=== PATIENT | male | born 1985 | race Caucasian/White ===

== ENCOUNTER 2019-02-05 23:31 | Emergency (ER) | payer BC ==
[2019-02-05] MEDS ORDERED: cefTRIAXone 1 GM Vial IM ONE (23:44)
[2019-02-05] MEDS ORDERED: guaiFENesin/Dextromethorphan 100-10 MG/5 ML Soln 5 ML Cup PO ONE (23:44)
[2019-02-05] MEDS ORDERED: Albuterol/Ipratropium 3.0-0.5 MG/3 ML Neb Soln NEB ONE (23:44)
--- NOTE | 2019-02-05 23:46 | EDM.PDOC ---
ED HPI GENERAL MEDICAL PROBLEM - General Chief Complaint: General Stated Complaint: cough Time Seen by Provider: 02/05/19 23:39 Source of Information: Reports: Patient History Limitations: Reports: No Limitations - History of Present Illness INITIAL COMMENTS - FREE TEXT/NARRATIVE: Patient is a 34-year-old gentleman who presents to the emergency department this evening with a complaint of upper respiratory symptoms including cough with productive yellow sputum. Patient's girlfriend presented last evening with similar symptoms and both were being treated at [facility] recently for bronchitis. Patient underwent regimen of Zithromax and prednisone with little to no relief over the past week. Girlfriend was found to have negative influenza yesterday. Patient denies fever, chest pain, shortness of breath or out of country travel. Onset: Gradual Duration: Day(s): Severity: Mild Improves with: Reports: None Worsens with: Reports: None Associated Symptoms: Reports: Cough, cough w sputum. Denies: Chest Pain, Fever/ Chills, Nausea/Vomiting, Shortness of Breath - Related Data Allergies Allergy/AdvReac Type Severity Reaction Status Date / Time sulfamethoxazole Allergy Cannot Verified 02/05/19 23:40 [From Bactrim] Remember trimethoprim [From Bactrim] Allergy Cannot Verified 02/05/19 23:40 Remember Home Meds: Home Meds Ranitidine HCl [Ranitidine] 300 mg PO DAILY 04/06/18 [History] hydrOXYzine pamoate [Hydroxyzine Pamoate] 50 mg PO TID PRN 04/06/18 [History] Past Medical History Musculoskeletal History: Reports: Other (See Below) Other Musculoskeletal History: Sciatic nerve pain at times on R side. Social & Family History - Caffeine Use Caffeine Use: Reports: Soda ED ROS GENERAL - Review of Systems Review Of Systems: ROS reveals no pertinent complaints other than HPI. Constitutional: Reports: No Symptoms HEENT: Reports: No Symptoms Respiratory: Reports: Cough, Sputum Cardiovascular: Reports: No Symptoms Endocrine: Reports: No Symptoms GI/Abdominal: Reports: No Symptoms : Reports: No Symptoms Musculoskeletal: Reports: No Symptoms Skin: Reports: No Symptoms Neurological: Reports: No Symptoms Psychiatric: Reports: No Symptoms Hematologic/Lymphatic: Reports: No Symptoms Immunologic: Reports: No Symptoms ED EXAM, GENERAL - Physical Exam Exam: See Below Exam Limited By: No Limitations General Appearance: Alert, WD/WN, No Apparent Distress Nose: Normal Inspection, Normal Mucosa, No Blood Throat/Mouth: Normal Inspection, Normal Oropharynx, No Airway Compromise Head: Atraumatic, Normocephalic Neck: Normal Inspection Respiratory/Chest: No Respiratory Distress, No Accessory Muscle Use, Chest Non- Tender, Rhonchi (Apical clears with cough) Cardiovascular: Regular Rate, Rhythm, No Murmur Extremities: Normal Inspection, No Pedal Edema Neurological: Alert, Oriented, Normal Cognition Psychiatric: Normal Affect, Normal Mood Skin Exam: Warm, Dry, Intact, Normal Color, No Rash Lymphatic: No Adenopathy Course - Re-Assessments/Exams Free Text/Narrative Re-Assessment/Exam: 02/05/19 23:53 Patient afebrile, vital signs stable, given 1 g Rocephin IM. Will follow-up with PCP in 2-3 days Departure - Departure Time of Disposition: 23:54 Disposition: Home, Self-Care 01 Condition: Good Clinical Impression: Upper respiratory infection Qualifiers: URI type: unspecified URI Qualified Code(s): J06.9 - Acute upper respiratory infection, unspecified - Discharge Information Instructions: Upper Respiratory Infection, Adult, [id number], Cough, Adult, [id number] Referrals: Eugenia Patel PA-C [Physician] - Additional Instructions: Follow up with Eugenia next 2-3 days. Return to emergency department sooner if symptoms continue to worsen. - Assessment/Plan Assessment:: Upper respiratory infection Plan: Follow-up with PCP
[2019-02-05] MEDS ORDERED: Lidocaine 1% 20 ML MDV ONE (23:52)
== END 2019-02-06 00:14 | disposition home or self-care (01) ==
LOC: KA.ED 23:31
DX: J06.9 Acute upper respiratory infection, unspecified (principal); Z88.1 Allergy status to other antibiotic agents; Z88.2 Allergy status to sulfonamides; Z79.899 Other long term (current) drug therapy
CPT/HCPCS: 94640; 96372; 99283; J0696; J2001; J7620-GY

== ENCOUNTER 2019-06-03 03:22 | Emergency (ER) | payer BC ==
--- NOTE | 2019-06-03 04:21 | EDM.PDOC ---
ED HPI GENERAL MEDICAL PROBLEM - General Chief Complaint: ENT Problem Stated Complaint: something caught in throat Time Seen by Provider: 06/03/19 03:45 Source of Information: Reports: Patient History Limitations: Reports: No Limitations - History of Present Illness INITIAL COMMENTS - FREE TEXT/NARRATIVE: 34-year-old male presents with a complaint of a foreign body (jerky) stuck in his throat. Patient was working at [employer] when he was eating some jerky and felt a piece lodge onto the right side of his throat. He did throw up one time due to gagging. He feels it is still present. He does not have any problems swallowing or drinking water. He is not have any airway difficulties or dysphasia. Onset: Today Onset Date: 06/03/19 Onset Time: 02:00 Duration: Minutes:, Constant Location: Reports: Neck Quality: Reports: Ache Severity: Mild Improves with: Reports: None Throat Pain Score (Numeric/FACES): 1 - Related Data Allergies Allergy/AdvReac Type Severity Reaction Status Date / Time sulfamethoxazole Allergy Cannot Verified 06/03/19 03:32 [From Bactrim] Remember trimethoprim [From Bactrim] Allergy Cannot Verified 02/05/19 23:40 Remember Home Meds: Home Meds Ranitidine HCl [Ranitidine] 300 mg PO DAILY 04/06/18 [History] hydrOXYzine pamoate [Hydroxyzine Pamoate] 50 mg PO TID PRN 04/06/18 [History] Past Medical History HEENT History: Reports: Impaired Vision Other HEENT History: glasses Gastrointestinal History: Reports: GERD Musculoskeletal History: Reports: Other (See Below) Other Musculoskeletal History: Sciatic nerve pain at times on R side. Neurological History: Reports: Migraines Psychiatric History: Reports: Anxiety - Infectious Disease History Infectious Disease History: Reports: Chicken Pox Social & Family History - Family History Oncologic: Reports: Breast Other Oncologic Family History: Mother had breast cancer - Tobacco Use Smoking Status *Q: Current Every Day Smoker Years of Tobacco use: 12 Packs/Tins Daily: 0.5 Second Hand Smoke Exposure: No - Caffeine Use Caffeine Use: Reports: Coffee, Energy Drinks, Soda - Recreational Drug Use Recreational Drug Use: No ED ROS ENT - Review of Systems Review Of Systems: Comprehensive ROS is negative, except as noted in HPI. ED EXAM, ENT - Physical Exam Exam: See Below Exam Limited By: No Limitations General Appearance: Alert, WD/WN, No Apparent Distress Eye Exam: Bilateral Eye: EOMI Ears: Hearing Grossly Normal Nose: Normal Inspection Mouth/Throat: Normal Inspection, Normal Gums, Normal Lips, Normal Oropharynx, Normal Teeth, Other (Small piece of the turkey is noted lodged along the posterior pharynx this is a visible use of light and tongue depressor.). No: Muffled Voice, Throat Swelling, Tongue Swelling, Tonsillar Erythema, Tonsillar Swelling, Uvular Deviation, Uvular Edema Head: Atraumatic, Normocephalic Neck: Normal Inspection, Supple, Non-Tender, Full Range of Motion Respiratory/Chest: No Respiratory Distress ED ENT PROCEDURES - Foreign Body Removal Indication:: Removal of foreign body (jerky) Foreign Body Other Location Comment:: Small piece of jerky was visualized in the posterior pharynx right side Anesthesia Type: None Findings: Small piece of foreign body (jerky) was removed using a small alligator forceps and tongue depressor without difficulty. Patient had immediate relief of the symptoms. Complications: No Course - Vital Signs Last Recorded V/S: Last Vital Signs Temp 98.4 F 06/03/19 03:23 Pulse 78 06/03/19 04:12 Resp 18 06/03/19 04:12 BP 137/78 06/03/19 04:12 Pulse Ox 97 06/03/19 04:12 - Re-Assessments/Exams Free Text/Narrative Re-Assessment/Exam: 06/03/19 04:24 She reports symptoms are resolved. He was drink of small bowel water without any difficulty. Departure - Departure Time of Disposition: 04:24 Disposition: Home, Self-Care 01 Condition: Good (Foreign body) Clinical Impression: Foreign body in throat Qualifiers: Encounter type: initial encounter Qualified Code(s): T17.208A - Unspecified foreign body in pharynx causing other injury, initial encounter - Discharge Information Instructions: Swallowed Foreign Body, Adult, [id number] Forms: ED Department Discharge Sepsis Event Note - Evaluation Sepsis Screening Result: No Definite Risk - Focused Exam Vital Signs: Vital Signs Temp Pulse Resp BP Pulse Ox 06/03/19 04:12 78 18 137/78 97 06/03/19 03:45 80 120/58 L 06/03/19 03:23 98.4 F 84 18 132/91 H 98 Date Exam was Performed: 06/03/19 Time Exam was Performed: 04:15 - Assessment/Plan Assessment:: Foreign body in the throat Plan: 1. Small piece of jerky was removed with alligator forceps and direct light visualization and use of a tongue depressor without the difficulty of. Patient reported resolution of his symptoms. He was drinking a small probable water without any difficulty. He is discharged to home with normal activities.
== END 2019-06-03 04:20 | disposition home or self-care (01) ==
LOC: KA.ED 03:22
DX: T17.228A Food in pharynx causing other injury, initial encounter (principal); K21.9 Gastro-esophageal reflux disease without esophagitis; F41.9 Anxiety disorder, unspecified; F17.210 Nicotine dependence, cigarettes, uncomplicated; Z88.2 Allergy status to sulfonamides; Z79.899 Other long term (current) drug therapy
CPT/HCPCS: 42809; 99283-25

== ENCOUNTER 2020-01-21 16:30 | Emergency (ER) | payer BC, OTHER ==
--- NOTE | 2020-01-21 16:52 | EDM.PDOC ---
ED HPI GENERAL MEDICAL PROBLEM - General Chief Complaint: General Stated Complaint: cough, fatigue, chills, weak, shakey Time Seen by Provider: 01/21/20 16:30 Source of Information: Reports: Patient History Limitations: Reports: No Limitations - History of Present Illness INITIAL COMMENTS - FREE TEXT/NARRATIVE: Right elbow, 35-year-old male, presents emergency department today with increasing symptoms/worsening symptoms of COVID-19. He developed initial symptoms on the weekend of the 04 14 and presented for evaluation on the . Negative influenza at that time. On the COVID-19 returned negative. He has been compliant with his medications and has had worsening discomfort, shortness of breath and increased cough over the past 24 hours. His hearing and vision have remained intact. His taste and smell are not normal, but he is able to experience taste. Generalized body aches as well as headache. He has increasing cough with associated shortness of breath. Denies any prolonged cough that does not cease. Has had normal bowel movement with questionably normal stool. generalized aches and pain with fatigue. Spouse is experiencing similar symptoms, although kori as severe. Onset Date: 01/14/20 Duration: Day(s):, Getting Worse Location: Reports: Head, Chest Quality: Reports: Burning, Pressure Severity: Severe Improves with: Reports: None Worsens with: Reports: Breathing Context: Reports: Sick Contact Associated Symptoms: Reports: No Other Symptoms - Related Data Allergies Allergy/AdvReac Type Severity Reaction Status Date / Time sulfamethoxazole Allergy Cannot Verified 01/21/20 16:40 [From Bactrim] Remember trimethoprim [From Bactrim] Allergy Cannot Verified 01/21/20 16:40 Remember Home Meds: Home Meds Ranitidine HCl [Ranitidine] 300 mg PO DAILY 04/06/18 [History] hydrOXYzine pamoate [Hydroxyzine Pamoate] 50 mg PO TID PRN 04/06/18 [History] Past Medical History HEENT History: Reports: Impaired Vision Other HEENT History: glasses Cardiovascular History: Reports: None Gastrointestinal History: Reports: GERD Musculoskeletal History: Reports: Other (See Below) Other Musculoskeletal History: Sciatic nerve pain at times on R side. Neurological History: Reports: Migraines Psychiatric History: Reports: Anxiety - Infectious Disease History Infectious Disease History: Reports: Chicken Pox Social & Family History - Family History Family Medical History: Noncontributory Oncologic: Reports: Breast Other Oncologic Family History: Mother had breast cancer - Tobacco Use Smoking Status *Q: Former Smoker Used Tobacco, but Quit: Yes Month/Year Tobacco Last Used: quit 6 mo. ago - Caffeine Use Caffeine Use: Reports: Soda - Recreational Drug Use Recreational Drug Use: No ED ROS GENERAL - Review of Systems Review Of Systems: Comprehensive ROS is negative, except as noted in HPI. ED EXAM, GENERAL - Physical Exam Exam: See Below Free Text/Narrative:: Alert oriented in mild distress secondary of cough. Able to speak and converse freely with no evidence of cyanosis nor pallor. Any forceful exhalation including speaking tends to produce cough. HEENT is negative discharge or deformity, there is no involvement of the auditory canals or tympanic membranes. Nasal passages are patent somewhat congested/hypertrophied, oropharynx shows no exudate or erythema. Neck is soft supple no lymphadenopathy no JVD no nuchal rigidity. Mild t enderness in the musculature is noted in the examination of the neck shoulders arms. Thorax is mildly diminished in the left and raspy with a clicking expiratory cycle, very faint wheeze on initial exhalation at the base on the left. There is no prolonged wheezing, no stridor. Cardiac is S1 S2 with no appreciated murmur. Abdomen is soft bowel sounds are noted with no specific tenderness/pain to p alpation. No rebound tenderness. No flank pain to percussion no tenderness to the thoracic or lumbar spine. rectal is deferred. There is no edema to the lower extremities he is able to move about with no exertional distress. Course - Vital Signs Last Recorded V/S: Last Vital Signs Temp 36.9 C 01/21/20 18:00 Pulse 108 H 01/21/20 16:36 Resp 22 H 01/21/20 16:36 BP 151/107 H 01/21/20 16:36 Pulse Ox 96 01/21/20 16:36 - Orders/Labs/Meds Orders: Active Orders 24 hr Category Date Time Status Isolation [COMM] Routine Oth 01/21/20 16:40 Ordered Labs: Laboratory Tests 01/21/20 01/21/20 01/21/20 Range/Units 16:55 16:55 16:55 WBC 10.39 H (5.00-10.00) 10^3/uL RBC 5.83 (4.50-6.00) 10^6/uL Hgb 16.7 (13.0-17.0) g/dL Hct 49.2 (40.0-52.0) % MCV 84.4 (82.0-92.0) fL MCH 28.6 (27.0-31.0) pg MCHC 33.9 (32.0-36.0) g/dL RDW 12.6 (11.5-14.5) % Plt Count 269 (150-400) 10^3/uL MPV 11.0 H (7.4-10.4) fL Immature Gran % (Auto) 0.2 (0.0-5.0) % Neut % (Auto) 83.0 H (50.0-70.0) % Lymph % (Auto) 13.9 L (20.0-40.0) % George % (Auto) 2.5 (2.0-8.0) % Eos % (Auto) 0.2 L (1.0-3.0) % Baso % (Auto) 0.2 (0.0-1.0) % Neut # (Auto) 8.63 H (2.50-7.00) 10^3/uL Lymph # (Auto) 1.44 (1.00-4.00) 10^3/uL George # (Auto) 0.26 (0.10-0.80) 10^3/uL Eos # (Auto) 0.02 L (0.10-0.30) 10^3/uL Baso # (Auto) 0.02 (0.00-0.10) 10^3/uL Immature Gran # (Auto) 0.02 (0.00-0.50) 10^3/uL Sodium 137 (136-145) mmol/L Potassium 4.0 (3.3-5.3) mmol/L Chloride 101 (98-115) mmol/L Carbon Dioxide 22.2 (21.0-32.0) mmol/L Anion Gap 17.8 H (5-15) mmol/L BUN 13 (6-25) mg/dL Creatinine 1.18 H (0.51-1.17) mg/dL Est Cr Clr Drug Dosing 94.83 mL/min Estimated GFR (MDRD) > 60 mL/min Glucose 124 H (75 - 99) mg/dL Lactic Acid 1.9 (0.4-2.0) mmol/L Calcium 8.7 (8.7-10.3) mg/dL Total Bilirubin 0.6 (0.2-1.0) mg/dL AST 18 (15-37) U/L ALT 41 (12-78) U/L Alkaline Phosphatase 71 (46-116) IU/L Total Protein 7.9 (6.4-8.2) g/dL Albumin 4.20 (3.00-4.80) g/dL SARS CoV-2 RNA Rapid KORINA (NEGATIVE) 01/21/20 Range/Units 16:55 WBC (5.00-10.00) 10^3/uL RBC (4.50-6.00) 10^6/uL Hgb (13.0-17.0) g/dL Hct (40.0-52.0) % MCV (82.0-92.0) fL MCH (27.0-31.0) pg MCHC (32.0-36.0) g/dL RDW (11.5-14.5) % Plt Count (150-400) 10^3/uL MPV (7.4-10.4) fL Immature Gran % (Auto) (0.0-5.0) % Neut % (Auto) (50.0-70.0) % Lymph % (Auto) (20.0-40.0) % George % (Auto) (2.0-8.0) % Eos % (Auto) (1.0-3.0) % Baso % (Auto) (0.0-1.0) % Neut # (Auto) (2.50-7.00) 10^3/uL Lymph # (Auto) (1.00-4.00) 10^3/uL George # (Auto) (0.10-0.80) 10^3/uL Eos # (Auto) (0.10-0.30) 10^3/uL Baso # (Auto) (0.00-0.10) 10^3/uL Immature Gran # (Auto) (0.00-0.50) 10^3/uL Sodium (136-145) mmol/L Potassium (3.3-5.3) mmol/L Chloride (98-115) mmol/L Carbon Dioxide (21.0-32.0) mmol/L Anion Gap (5-15) mmol/L BUN (6-25) mg/dL Creatinine (0.51-1.17) mg/dL Est Cr Clr Drug Dosing mL/min Estimated GFR (MDRD) mL/min Glucose (75 - 99) mg/dL Lactic Acid (0.4-2.0) mmol/L Calcium (8.7-10.3) mg/dL Total Bilirubin (0.2-1.0) mg/dL AST (15-37) U/L ALT (12-78) U/L Alkaline Phosphatase (46-116) IU/L Total Protein (6.4-8.2) g/dL Albumin (3.00-4.80) g/dL SARS CoV-2 RNA Rapid KORINA Negative (NEGATIVE) Meds: Medications Discontinued Medications Generic Name Dose Route Start Last Admin Trade Name Freq PRN Reason Stop Dose Admin Acetaminophen 1,000 mg 01/21/20 17:41 01/21/20 18:00 Tylenol Extra Strength PO 01/21/20 17:42 1,000 mg ONETIME ONE Administration Guaifenesin/Codeine Phosphate 10 ml 01/21/20 17:45 01/21/20 18:00 Robitussin Ac PO 01/21/20 17:46 10 ml ONETIME ONE Administration - Re-Assessments/Exams Free Text/Narrative Re-Assessment/Exam: 01/21/20 17:42 States he feels increasingly warm and discomforted at this time, Tylenol will be administered. Advised of negative COVID 19 result as well as negative influenza a and B. Awaiting electrolyte panel and lactic acid at this time. Departure - Departure Time of Disposition: 18:09 Disposition: Home, Self-Care 01 Condition: Fair Clinical Impression: Cough, Body aches, Influenza virus not isolated, COVID-19 ruled out by laboratory testing - Discharge Information Instructions: Viral Respiratory Infection, Wvmp-Pp-Fill, Cough, Adult Forms: ED Department Discharge, ED Return to Work/School Form Additional Instructions: Continue your medications and treatment guidance as previously discussed in the clinic. You need to increase your fluid intake, water, or sports drink as your creatinine is sitting at high normal at this time. Tylenol or Motrin as needed for pain and fever. No work for 72 hours after symptoms have resolved without the use of antipyretics, acetaminophen or ibuprofen. Contact clinic for recheck Wednesday the if not showing some improvement, or tomorrow if worsening. Call or return to the emergency department if severe shortness of breath, or fever greater than 102 with no improvement with treatment should occur. Maintain isolation until a minimum of 72 hours after symptoms have resolved. Sepsis Event Note (ED) - Evaluation Sepsis Screening Result: No Definite Risk - Focused Exam Vital Signs: Vital Signs Temp Temp Pulse Resp BP Pulse Ox 01/21/20 18:00 36.9 C 01/21/20 16:36 37.3 C 108 H 22 H 151/107 H 96 - Problem List & Annotations (1) Fever SNOMED Code(s): 906205911 Code(s): R50.9 - FEVER, UNSPECIFIED Status: Acute Priority: High Qualifiers: Fever type: unspecified Qualified Code(s): R50.9 - Fever, unspecified (2) Cough SNOMED Code(s): 16212606 Code(s): R05 - COUGH Status: Acute Priority: High (3) Body aches SNOMED Code(s): 45860541 Code(s): R52 - PAIN, UNSPECIFIED Status: Acute Priority: High (4) Influenza virus not isolated SNOMED Code(s): 400713573 Code(s): J11.1 - FLU DUE TO UNIDENTIFIED INFLUENZA VIRUS W OTH RESP MANIFEST Status: Acute (5) COVID-19 ruled out by laboratory testing SNOMED Code(s): 019143836, 423524982 Code(s): Z03.818 - ENCNTR FOR OBS FOR SUSP EXPSR TO OT BIOLG AGENTS RULED OUT Status: Acute Priority: High - Problem List Review Problem List Initiated/Reviewed/Updated: Yes - My Orders Last 24 Hours: My Active Orders 01/21/20 16:40 Isolation [COMM] Routine - Assessment/Plan Last 24 Hours: My Active Orders 01/21/20 16:40 Isolation [COMM] Routine Plan: Continue your medications and treatment guidance as previously discussed in the clinic. You need to increase your fluid intake, water, or sports drink as your creatinine is sitting at high normal at this time. Tylenol or Motrin as needed for pain and fever. No work for 72 hours after symptoms have resolved without the use of antipyretics, acetaminophen or ibuprofen. Contact clinic for recheck Wednesday the if not showing some improvement, or tomorrow if worsening. Call or return to the emergency department if severe shortness of breath, or fever greater than 102 with no improvement with treatment should occur. Maintain isolation until a minimum of 72 hours after symptoms have resolved.
--- NOTE | 2020-01-21 17:34 | CR ---
[id number] RAD/RAD Chest PA or AP 1V EXAM: SINGLE VIEW CHEST. INDICATION: COUGH SHORTNESS OF BREATH COMPARISON: NO PREVIOUS SIMILAR EXAM IS AVAILABLE FINDINGS: The lungs are clear at this time The cardiac silhouette is normal IMPRESSION: NO INFILTRATE SEEN Scooter Del Toro MD 01/21/20 [id number] Thank you for allowing us to participate in the care of your patient.
[2020-01-21] MEDS ORDERED: Acetaminophen 500 MG Tab PO ONE (17:41)
[2020-01-21 17:45] LABS: ANION GAP 17.8 mmol/L (5-15); CHLORIDE,CL 101 mmol/L (98-115); SODIUM,NA 137 mmol/L (136-145)
[2020-01-21] MEDS ORDERED: Codeine/guaiFENesin 10-100 MG/5 ML Syrup 5 ML Cup PO ONE (17:45)
== END 2020-01-21 18:20 | disposition home or self-care (01) ==
LOC: KA.ED 16:30
DX: J11.1 Influenza due to unidentified influenza virus with other respiratory manifestations (principal); R52 Pain, unspecified; K21.9 Gastro-esophageal reflux disease without esophagitis; F41.9 Anxiety disorder, unspecified; Z87.891 Personal history of nicotine dependence; Z88.2 Allergy status to sulfonamides; Z88.1 Allergy status to other antibiotic agents; Z79.899 Other long term (current) drug therapy; Z20.828 Contact with and (suspected) exposure to other viral communicable diseases
CPT/HCPCS: 36415; 71045; 80053; 83605; 85025; 87804; 99284; 99285-25; A9270-GY; U0002

== ENCOUNTER 2020-07-10 10:47 | Emergency (ER) | payer OTHER ==
--- NOTE | 2020-07-10 11:09 | EDM.PDOC ---
ED HPI GENERAL MEDICAL PROBLEM - General Chief Complaint: General Stated Complaint: HIT HEAD AT WORK Time Seen by Provider: 07/10/20 11:09 Source of Information: Reports: Patient History Limitations: Reports: No Limitations - History of Present Illness INITIAL COMMENTS - FREE TEXT/NARRATIVE: Mariana, 35-year-old male, presents to the emergency department for evaluation of the Workmen's Compensation injury occurring yesterday morning. While ambulating at work, he struck his head on the ball of the granda cable. Did not lose consciousness but became extremely dizzy with some headache. Visual concerns/changes occurred at that time and have persisted somewhat since. Speaks of lowered concentration ability today, mild headache, difficulty focusing on his vision. Does not feel his normal self. Denies nausea at this time. Awoke this am feeling better, but as work day progressed has worsened in symptoms. Onset Date: 07/09/20 Onset Time: 09:00 Duration: Hour(s): Location: Reports: Head Quality: Reports: Ache, Pressure Severity: Moderate Improves with: Reports: None Context: Reports: Trauma Associated Symptoms: Reports: Confusion, Headaches Treatments UNDERGRADUATE INTERN: Reports: NSAIDS, Other (see below) Other Treatments UNDERGRADUATE INTERN: Ibuprofen yesterday Head Pain Score (Numeric/FACES): 7 - Related Data Allergies Allergy/AdvReac Type Severity Reaction Status Date / Time sulfamethoxazole Allergy Cannot Verified 07/10/20 11:00 [From Bactrim] Remember trimethoprim [From Bactrim] Allergy Cannot Verified 07/10/20 11:00 Remember Home Meds: Home Meds Albuterol [Ventolin HFA] 2 puff INH Q4H PRN 01/21/20 [History] Escitalopram Oxalate 10 mg PO DAILY PRN 01/21/20 [History] Past Medical History HEENT History: Reports: Impaired Vision Other HEENT History: glasses Cardiovascular History: Reports: None Respiratory History: Reports: Other (See Below) (Chronic cough, bronchitic kori ure.) Gastrointestinal History: Reports: GERD Genitourinary History: Reports: None Musculoskeletal History: Reports: Other (See Below) Other Musculoskeletal History: Sciatic nerve pain at times on R side. Neurological History: Reports: Migraines Psychiatric History: Reports: Anxiety Endocrine/Metabolic History: Reports: None Hematologic History: Reports: None Immunologic History: Reports: None Oncologic (Cancer) History: Reports: None Dermatologic History: Reports: None - Infectious Disease History Infectious Disease History: Reports: Chicken Pox Social & Family History - Family History Family Medical History: No Pertinent Family History Oncologic: Reports: Breast Other Oncologic Family History: Mother had breast cancer - Tobacco Use Tobacco Use Status *Q: Never Tobacco User Second Hand Smoke Exposure: No - Caffeine Use Caffeine Use: Reports: Coffee, Soda - Recreational Drug Use Recreational Drug Use: No ED ROS GENERAL - Review of Systems Review Of Systems: Comprehensive ROS is negative, except as noted in HPI. ED EXAM, GENERAL - Physical Exam Exam: See Below Free Text/Narrative:: Alert, oriented, with mild painful distress. HEENT shows mild tenderness with slight inflammation to the right frontal parietal region. PERRLA no icterus no injection. There is no tenderness to the maxillofacial region with no malocclusion noted on examination. No spinal tenderness, no paraspinal muscle rigidity. Thorax is clear throughout with no wheezes nor crackles noted. No cough is induced with exhalation. Cardiac is S1-S2 with no appreciated murmur. No flank pain no abdominal pain noted. Radial pulse correlates with apical heart rate. Nondilated funduscopy reveals no nicking or scarring with red reflex positive bilateral. Extraocular motion is intact. There is no dysfunction to gait. Course - Vital Signs Last Recorded V/S: Last Vital Signs Temp 97.3 F 07/10/20 10:49 Pulse 76 07/10/20 10:49 Resp 16 07/10/20 10:49 BP 147/93 H 07/10/20 10:49 Pulse Ox 95 07/10/20 10:49 Departure - Departure Time of Disposition: 12:08 Disposition: Home, Self-Care 01 Condition: Fair Clinical Impression: Post concussion syndrome, Work related injury Headache Qualifiers: Headache type: other headache syndrome Qualified Code(s): G44.89 - Other headache syndrome - Discharge Information *PRESCRIPTION DRUG MONITORING PROGRAM REVIEWED*: Not Applicable *COPY OF PRESCRIPTION DRUG MONITORING REPORT IN PATIENT ANNALISE: Not Applicable Referrals: Eugenia Patel PA-C [Primary Care Provider] - Forms: ED Department Discharge, ED Return to Work/School Form Additional Instructions: You need to go home and rest. Avoiding bright lights, computer screens, smart phones and other electronic devices. You need to rest in a quiet darkened area avoiding visual and auditory stimulation. You will need to call the clinic to get an appointment for Wednesday for recheck for return to work clearance. Return to the emergency department or contact the clinic if your symptoms worsen. You may take acetaminophen today as needed for headache and may take your ibuprofen or Aleve starting again tomorrow. Sepsis Event Note (ED) - Evaluation Sepsis Screening Result: No Definite Risk - Focused Exam Vital Signs: Vital Signs Temp Pulse Resp BP Pulse Ox 07/10/20 10:49 97.3 F 76 16 147/93 H 95 - Problem List & Annotations (1) Work related injury SNOMED Code(s): 12091191 Code(s): Y99.0 - CIVILIAN ACTIVITY DONE FOR INCOME OR PAY Status: Acute Priority: High Current Visit: Yes (2) Headache SNOMED Code(s): 65218628 Code(s): R51.9 - HEADACHE, UNSPECIFIED Status: Acute Priority: High C urrent Visit: Yes Qualifiers: Headache type: other headache syndrome Qualified Code(s): G44.89 - Other headache syndrome (3) Post concussion syndrome SNOMED Code(s): 36570685 Code(s): F07.81 - POSTCONCUSSIONAL SYNDROME Status: Acute Priority: High Current Visit: Yes - Assessment/Plan Plan: You need to go home and rest. Avoiding bright lights, computer screens, smart phones and other electronic devices. You need to rest in a quiet darkened area avoiding visual and auditory stimulation. You will need to call the clinic to get an appointment for Wednesday for recheck for return to work clearance. Return to the emergency department or contact the clinic if your symptoms worsen. You may take acetaminophen today as needed for headache and may take your ibuprofen or Aleve starting again tomorrow.
--- NOTE | 2020-07-10 11:54 | CT ---
[id number] CT/CT Head WO IV EXAM: CT Head WO IV CLINICAL DATA: HEAD TRAUMA, STRUCK HEAD, CONCUSSIVE SYMPTOMS. COMPARISON STUDY: None FINDINGS: No intracranial hemorrhage, extra-axial fluid collection, mass, or acute ischemia. No hydrocephalus. Calvarium intact. Paranasal sinuses and mastoid air cells are clear. IMPRESSION: No acute intracranial findings. Sya Baxter MD 07/10/20 1153 Thank you for allowing us to participate in the care of your patient.
[2020-07-10] MEDS ORDERED: Ketorolac 60 MG/2 ML SDV IM ONE (12:03)
== END 2020-07-10 12:20 | disposition home or self-care (01) ==
LOC: KA.ED 10:47
DX: G44.89 Other headache syndrome (principal); F07.81 Postconcussional syndrome; Z88.2 Allergy status to sulfonamides; Z88.1 Allergy status to other antibiotic agents; W22.8XXA Striking against or struck by other objects, initial encounter; Y92.89 Other specified places as the place of occurrence of the external cause; Y99.0 Civilian activity done for income or pay
CPT/HCPCS: 70450; 96372; 99283; 99284-25; J1885